=== PATIENT | female | born 1975 | race Caucasian/White ===

== ENCOUNTER 2021-02-09 17:31 | Emergency (ER) | payer BC ==
[~2021-02-09] VITALS: Ht 167.6 cm; Wt 78.9 kg
[2021-02-09 17:36] VITALS: BP 130/65
--- NOTE | 2021-02-09 17:44 | NUR ---
PATIENT AMBULATED TO BED 12 WITH STEADY GAIT
--- NOTE | 2021-02-09 17:53 | NUR ---
45 Y/O FEMALE PRESENTS TO ED REFERRED FROM URGENT CARE FOR VAGINAL BLEEDING DUE TO POSSIBLE MISCARRIAGE. PT STATES SHE FOUND OUT SHE WAS THIS PAST WEEK. PT STATED THAT SHE NOTICED "PINK DISCHARGE" AND THEN AT 0600 TODAY, HAD VAGINAL BLEEDING. STATED SHE PAST LARGE "BLOOD CLOT" TODAY. PT DENIES PAIN AT THIS TIME BUT STATED THAT SHE HAD ABDOMINAL CRAMPING THIS MORNING. PT 2ND . PT A/O X4 WITH EVEN AND UNLABORED RESPIRATIONS. PT IN GOWN LAYING IN BED WITH BED IN LOWEST POSITION, BRAKES LOCKED, X1 SIDERAIL UP. MEDHX: DENIES NKDA
--- NOTE | 2021-02-09 18:24 | NUR ---
PT AMBULATED TO RESTROOM FOR URINE SAMPLE
--- NOTE | 2021-02-09 18:31 | NUR ---
DR VALDOVINOS AT BEDSIDE FOR EVALUATION
--- NOTE | 2021-02-09 18:36 | NUR ---
LAB AT BEDSIDE FOR BLOOD DRAW
[2021-02-09 19:06] LABS: BASOPHILS % (AUTO) 0.4 % (0.0-2.0); EOSINOPHILS # (AUTO) 0.2 K/uL (0-0.4); EOSINOPHILS % (AUTO) 2.2 % (0.0-4.0); HEMATOCRIT 42.1 % (36-48); HEMOGLOBIN 14.8 g/dL (12.0-16.0); LYMPHOCYTES # (AUTO) 2.3 K/uL (2.5-16.5); LYMPHOCYTES % (AUTO) 24.8 % (20.5-51.1); MEAN CORPUSCULAR HEMOGLOBIN 31 pg (27-31); MEAN CORPUSCULAR HGB CONC 35 g/dL (33-37); MONOCYTES # (AUTO) 0.7 K/uL (0.8-1.0); MONOCYTES % (AUTO) 7.6 % (1.7-9.3); NEUTROPHILS # (AUTO) 6.1 K/uL (1.8-7.7); PLATELET COUNT (AUTO) 195 K/uL (140-450); RED BLOOD CELL COUNT(AUTO) 4.78 MIL/uL (4.20-5.40); RED CELL DISTRIBUTION WIDTH 12.5 % (11.6-13.7); WHITE BLOOD COUNT (AUTO) 9.3 K/uL (4.8-10.8)
--- NOTE | 2021-02-09 19:11 | NUR ---
REPORT GIVEN TO [facility] FOR TRANSFER OF CARE
--- NOTE | 2021-02-09 19:18 | NUR ---
US AT BEDSIDE
--- NOTE | 2021-02-09 19:25 | NUR ---
Received pt from [facility]. transfer of care at this time. pt is currently a/o x 4, gcs 15. S.O at bedside. NAD noted
[2021-02-09 19:26] LABS: ALBUMIN 4.2 g/dL (3.4-5.0); CARBON DIOXIDE 29.3 mmol/L (21-32); CREATININE 0.7 mg/dL (0.6-1.3); POTASSIUM 4.3 mmol/L (3.5-5.1); TOTAL BILIRUBIN 0.5 mg/dL (0.0-1.0)
--- NOTE | 2021-02-09 20:32 | NUR ---
Dr. Patterson with pt for reassessment.
--- NOTE | 2021-02-09 20:40 | NUR ---
pt signed rhogam consent.
--- NOTE | 2021-02-09 20:52 | NUR ---
Rhogam given via IM shot left ventrogluteal.
[2021-02-09 20:53] VITALS: BP 124/73
--- NOTE | 2021-02-09 21:30 | NUR ---
d/c with VSS. d/c with no rx . opportunity to ask questions given and answered. referral to OB given.
== END 2021-02-09 21:30 | disposition home or self-care (01) ==
LOC: MED 17:31
DX: O03.4 Incomplete spontaneous abortion without complication (principal); N83.201 Unspecified ovarian cyst, right side
CPT/HCPCS: 36415; 36430; 76817; 80053; 81002; 81025; 84702; 85025; 86886; 86900; 86901; 99285; J2790

== ENCOUNTER 2022-03-31 12:23 | Emergency (ER) | payer BC ==
[~2022-03-31] VITALS: Ht 170.2 cm; Wt 81.2 kg
[2022-03-31 12:30] VITALS: BP 128/88
[2022-03-31] MEDS ORDERED: INTUBATION KIT MC ONE (12:35)
[2022-03-31 14:30] LABS: BASOPHILS % (AUTO) 0.4 % (0.0-2.0); EOSINOPHILS # (AUTO) 0.1 K/uL (0-0.4); EOSINOPHILS % (AUTO) 1.9 % (0.0-4.0); HEMATOCRIT 38.1 % (36-48); HEMOGLOBIN 13.1 g/dL (12.0-16.0); LYMPHOCYTES # (AUTO) 1.3 K/uL (2.5-16.5); LYMPHOCYTES % (AUTO) 26.6 % (20.5-51.1); MEAN CORPUSCULAR HEMOGLOBIN 30 pg (27-31); MEAN CORPUSCULAR HGB CONC 34 g/dL (33-37); MEAN CORPUSCULAR VOLUME 86.8 fL (80-94); MONOCYTES # (AUTO) 0.5 K/uL (0.8-1.0); MONOCYTES % (AUTO) 10.2 % (1.7-9.3); NEUTROPHILS % (AUTO) 60.9 % (42.2-75.2); PLATELET COUNT (AUTO) 173 K/uL (140-450); RED BLOOD CELL COUNT(AUTO) 4.39 MIL/uL (4.20-5.40); RED CELL DISTRIBUTION WIDTH 13.2 % (11.6-13.7); WHITE BLOOD COUNT (AUTO) 4.9 K/uL (4.8-10.8)
--- NOTE | 2022-03-31 16:42 | NUR ---
RHOGAM CONSENT SIGNED.
--- NOTE | 2022-03-31 17:11 | NUR ---
WENT TO MEDICATE PT, NO LONGER IN CHAIR. PT LEFT WITHOUT RHOGAM ADMINISTRATION AND ALSO LEFT WITHOUT D/C PAPERS.
[2022-03-31 17:25] LABS: APPEARANCE,URINE CLEAR (CLEAR); BILIRUBIN,URINE NEGATIVE (NEGATIVE); BLOOD, URINE 2+ (NEGATIVE); COLOR,URINE YELLOW (YELLOW); LEUKOCYTE ESTERASE ,URINE NEGATIVE (NEGATIVE); NITRITE, URINE NEGATIVE (NEGATIVE); UGLUCOSE NEGATIVE (NEGATIVE)
[2022-03-31 17:42] LABS: RBC,URINE 0-5 /HPF (0-5); WBC,URINE NONE SEEN /HPF (0-5)
== END 2022-03-31 17:11 | disposition home or self-care (01) ==
LOC: MED 12:23
DX: O20.0 Threatened abortion (principal); R19.7 Diarrhea, unspecified; Z3A.13 13 weeks gestation of pregnancy; F17.290 Nicotine dependence, other tobacco product, uncomplicated
CPT/HCPCS: 36415; 76817; 81001; 81025; 84702; 85025; 86886; 86900; 86901; 99284; Q0092